=== PATIENT | male | born 1960 | race Caucasian/White ===

== ENCOUNTER 2016-11-03 14:46 | Inpatient (IN) | payer OTHER ==
[~2016-11-03] VITALS: Ht 170.2 cm; Wt 64.8 kg
[2016-11-03 14:40] VITALS: BP 142/83; PULSE 68; RESP 18; O2SAT 97
[~2016-11-03 14:46] MED LIST: ASPI-973 PO; OMEP20CA11 PO; POLY17PO6 PO; [UNRECOGNIZED DRUG - CODE] PO
[2016-11-03] MEDS ORDERED: ASPI325T32 PO (15:02)
[2016-11-03] MEDS ORDERED: Heparin 5,000 Unit/mL Inj IVPUSH PRN (16:20)
[2016-11-03] MEDS ORDERED: Heparin 25K Unit/500mL 0.45 NS 25,000 UNIT in IV Premix 1 EACH IV SCH ×2 (16:20→18:00)
--- NOTE | 2016-11-03 16:59 | CONS ---
[address] [address] CONSULTATION REPORT PATIENT: YADY NEGRETE : 1960 MR#: [id number] ADMIT: 11/03/2016 JOB ID: [id number] DATE OF SERVICE: 11/03/2016 CARDIOLOGY CONSULTATION: IDENTIFICATION: Dr. Akhil Arita has asked that I consult on this 56-year-old male admitted in transfer from [facility] with recent history of recurrent chest discomfort and an abnormal stress test. HISTORY OF PRESENT ILLNESS: The patient denies any previous cardiac history except for intermittent hypertension and is an admitted chronic smoker with a 35 pack-year history. He describes a one-year history of occasional chest pressure without any clear pattern for which he was given sublingual nitroglycerin but had no ischemic evaluation. However, over the previous five days he has had six episodes of a fairly intense exertional mid chest pressure without radiation associated with dyspnea, typically lasting 5-20 minutes and resolving with rest. He has had no resting discomfort. He denies any positional or pleuritic component to the discomfort. Last night he was doing some light gardening when he developed a much more intense discomfort associated with dyspnea that lasted around 15 minutes and then improved but lingered and therefore medics were summoned. He was found to have a blood pressure 140/70 and was transported to [facility] where his ECG was reportedly normal. His discomfort had nearly resolved by the time of his arrival and resolved after nitrates for a total duration of around an hour and a half. He has had no further chest discomfort. His initial troponin was in the indeterminate range at 0.65, increasing to 0.81. He underwent standard exercise treadmill testing this morning and apparently had significant EKG changes, but he denies any chest discomfort. Those tracings are not currently available for review, but by Dr. Crowder's report were notably abnormal. It is notable that the patient states that he was hypertensive at the time of the treadmill at 212/110. He was subsequently transferred for further evaluation and management. He denies any sense of any palpitations or diaphoresis. His risk factors include a history of hypertension, although he was taken off of his blood pressure medications earlier this year because of normal blood pressures. He denies any history of hyperlipidemia and his LDL was 64 with an HDL of 40 at the time of admission. There is no history of diabetes. PAST MEDICAL HISTORY: History of a 27-pound weight loss with abdominal discomfort for which he had an EGD that showed gastritis. This has now resolved. He has had a carpal tunnel release, neck fusion, and multiple knee surgeries. HOME MEDICATIONS: Only aspirin and sublingual nitroglycerin. ALLERGIES: No known drug allergies. FAMILY HISTORY: Notable for a father who required CABG in his 50s. 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 He denies any alcohol consumption over the last year and denies any marijuana or other recreational drug use. REVIEW OF SYSTEMS: A complete review is obtained and is notable for the absence of any recent fevers or chills or weight change. Denies any vision change. He recently has had multiple teeth extractions, with plans for more extractions in the near future, with subsequent dentures. He also complains of occasional difficulty swallowing ever since his neck fusion surgery but denies any aspiration or inability to swallow. Denies any dyspnea, cough, or hemoptysis. No history of any peptic ulcer disease or GI blood loss. Denies any genitourinary complaints or hematuria. No unusual musculoskeletal complaints. Denies any history of any neurologic symptoms, thyroid or bleeding disorder, or anxiety or depression. PHYSICAL EXAMINATION: Very pleasant, middle-aged white male, in no distress. HR 68, BP 142/83, O2 saturation 97% on room air. Skin: Warm and dry, with multiple tattoos throughout his body. HEENT: EOMI. Without arcus. He has very poor dentition, with multiple missing teeth. Lungs: Clear bilaterally to auscultation and percussion, without any rales or wheeze. CV: Nonpalpable PMI, with a regular rate and rhythm, with a normal S1 and S2, without any appreciable murmurs or gallops. JVP is 4-5 cm. Carotid and femoral pulses are 2+ bilaterally, with a normal upstroke without bruit. Dorsalis pedis and posterior tibial pulses are all 2+. Abdomen: Soft, nondistended, nontender. Without any palpable masses or organomegaly. Normal bowel tones are present, without bruits. Extremities: Warm, without any clubbing, cyanosis, or edema. Neuro: Moves all four extremities. Psych: Awake, alert, and oriented. LABORATORY: White count yesterday was 8.4, with hematocrit of 43%. BUN was 12, with a creatinine of 0.8. Potassium was 3.9, with a magnesium of 2.0. LFTs were normal. Troponin was 0.65. INR was 0.9. Amylase was 40. BNP was 97. Chest x-ray: Reportedly showed clear lung ramirez with some mild degenerative changes of the spine but otherwise normal. ECG is not currently available for review but by description showed sinus rhythm at 60 BPM without any significant abnormalities. IMPRESSION: 1. Recent exertional chest discomfort, now with an abnormal stress test. The patient's history is certainly concerning for an unstable angina picture given the exertional component of the discomfort and the borderline troponins. While I do not have the stress test tracings, they reportedly showed ischemic changes with exercise, supporting a probable ischemic etiology to his discomfort. However, given his hypertensive blood pressure to exercise, it could alternatively be a false positive due to his hypertension. I discussed potential evaluation strategies which would include repeat stress testing with an imaging modality to increase the sensitivity and specificity of the test versus proceeding directly to cardiac catheterization for definitive assessment of his coronary anatomy and possible percutaneous revascularization, if appropriate. After discussion of the risks, alternatives, and potential outcomes, the patient agrees to proceed with cardiac catheterization. I will contact Dr. Glez to arrange for angiography sometime tomorrow. In the meantime, I would start him on IV heparin given his concern for an unstable acute coronary syndrome. Will maintain him on low-dose beta blockade. He will be left n.p.o. in anticipation of his procedure tomorrow. Consideration should be given to possible bare metal stenting rather than drug-eluting stenting, if appropriate, as the patient is anticipating the need for extensive dental extractions which may be complicated if he is on dual anti-platelet therapy for an extended period of time. 2. Tobacco addiction. I counseled the patient that he needs to stop smoking. 3. History of gastritis. It is conceivable that his discomfort could be gastrointestinal related, but I believe that a cardiac etiology needs to be excluded before we use this diagnosis to explain his symptoms. PLAN: 1. Initiate IV heparin and beta blockade with nitrates as needed. 2. Proceed with cardiac catheterization tomorrow with further recommendations depending upon those results. 3. Continue to support tobacco abstinence. 4. Initiate empiric statin therapy, which should be continued if significant coronary artery disease is documented. TIME: I spent 1 hour and 15 minutes reviewing the patient's medical records, interviewing and examining the patient, answering his questions, and documenting such.
--- NOTE | 2016-11-03 17:27 | NUR ---
Direct Admit from [facility] pt. admitted at 1440 from CV; report received from RN. Pt. A&Ox3; denied cp or pressure; vss. Pt. started on heparin gtt this evening after baseline PTT drawn; heparin gtt started at 800 units/hr, 16 ml/hr; next PTT scheduled for 2218 this evening. Admit done; med rec completed. Pt. denies knowledge of any medication/food allergy; allergy list updated. Cardiologists consulted with pt; consent signed for heart cath tomorrow, 11/04/16; no questions about procedure at this time. Tele sinus 80's.
[2016-11-03] MEDS ORDERED: Atropine 1 mg/10 mL (Code) Syringe IVPUSH PRN (18:00)
[2016-11-03] MEDS ORDERED: Ondansetron 2 mg/mL 2 mL Inj IVPUSH PRN (18:00)
[2016-11-03] MEDS ORDERED: Alum-Mag Hydrox-Simeth 30 mL Suspension PO PRN (18:00)
[2016-11-03] MEDS ORDERED: Polyethylene Glycol (PEG) 17 Gm Powder PO PRN (18:00)
[2016-11-03] MEDS ORDERED: Senna-Docusate 8.6-50 mg Tablet PO PRN (18:00)
--- NOTE | 2016-11-03 18:10 | PCM.HPMED ---
Subjective Date of Service Nov 03, 2016 Primary Provider: Admitting Physician: Akhil Arita MD Primary Care Physician: Jaden Crowder MD Attending Physician: Akhil Arita MD Admit Status: Direct Admit, [facility] Telemetry Chief Complaint: Stuttering chest pain History of Present Illness: This is a 56-year-old male with a history of tobacco use and probable family history of CAD. He presents with five-day history of stuttering chest pain. The chest pain has been brought on by exertion and typically gets better with rest. He denies any nausea with it but has had some dyspnea and some diaphoresis. The patient describes the pain is more weight on his chest. No recent cough, no pleuritic component and no hemoptysis. No nausea or vomiting. He denies any dyspeptic symptoms. No abdominal pain. She also denies any leg swelling or edema. He had more severe pain last night and for that reason went to [facility] where he was admitted. His initial EKG and troponin were normal but his subsequent troponins were mildly abnormal. He underwent a stress test today which was concerning. They then arrange transfer to our hospital for probable cardiology evaluation and possible angiogram. The patient was placed on a heparin drip at [place] and denies any pain at the time of admit. Review of Systems: All else reviewed and otherwise noncontributory except as noted in history of present illness Allergies Coded Allergies: No Known Allergies (Verified Allergy, Unknown, 11/03/16) Home Medications Aspirin as needed for headaches PMH Tobacco dependence Surgical History Cervical fusion and 2 cervical laminectomies. Family History Father with CAD and bypass grafting at about age 50. Social History Hx Alcohol Use: Yes Hx Substance Use: Yes Living Arrangement: with Family Exam Vital Signs Vital Sign - Last Date Time Temp Pulse Resp B/P Pulse Ox O2 Delivery O2 Flow Rate FiO2 11/03/16 14:40 36.3 68 18 142/83 97 Room Air Exam Oriented 3. No distress. Fluent speech. Normal affect. Normal skull. Normal nose and ears. Anicteric sclera, symmetric pupils Oropharynx is unremarkable, no facial droop. Neck is supple, normal thyroid. No adenopathy. Lungs are clear, normal effort rate. Heart is regular without murmur gallop or rub. Abdomen soft, nondistended or tender. Extremities are free of pedal edema. Good radial and pedal pulses. Skin is free of rash, lesions. No petechiae or ecchymosis. Joints are grossly normal. Cranial nerves are grossly normal. Motor strength is normal in all extremities. Normal muscular tone. Lab and Diagnostics 12-lead ECG Pending Assessment & Plan Unstable angina, POA. This patient does have a history of crescendo chest pain. He also has multiple risk factors for CAD. He will be maintained on heparin drip, dual antiplatelets and beta blockade tonight. He will be nothing by mouth after midnight in anticipation of a possible coronary angiogram tomorrow. Cardiology consultation has been requested. Tobacco dependence, POA. We will use a nicotine patch tonight. Patient is full resuscitation, confirmed today. Patient is admitted inpatient status, tonight's anticipated length of stay. Pain Evaluation: Adequate Pain Control Resuscitation Status: CPR: Attempt Resuscitation Time spent 40 minutes Akhil Arita MD Nov 03, 2016 18:10
[2016-11-03 18:19] LABS: TROPONIN T 0.206 ug/L (0.0-0.011)
[2016-11-03 18:44] LABS: Creatine Kinase 86 U/L (21-232); Magnesium 1.9 mg/dL (1.6-2.6)
[2016-11-03] MEDS: 0.9% Sodium Chloride 1,000 ML IV SCH (19:55)
[2016-11-03 21:50] VITALS: BP 126/81; PULSE 55; RESP 16; O2SAT 99
[2016-11-03] MEDS: Heparin 5,000 Unit/mL Inj IVPUSH PRN (22:32)
[2016-11-03 23:40] VITALS: BP 127/76; PULSE 56; RESP 16; O2SAT 98
[2016-11-04] VITALS (17 sets, daily range): BP systolic 114–155; BP diastolic 70–91; PULSE 53–70; RESP 12–21; O2SAT 95–99
[2016-11-04] MEDS: Sodium Chloride LOK Flush 10 mL Syringe IVFLUSH SCH ×3 (00:30→17:30)
[2016-11-04 01:40] LABS: Creatine Kinase 79 U/L (21-232)
[2016-11-04 02:36] LABS: BASOPHILS % (AUTO) 0.4 % (0-3); EOSINOPHILS % (AUTO) 3.1 % (0-5); MONOCYTES % (AUTO) 8.7 % (4-12); Mean Corpuscular Hemoglobin 32.8 pg (27.0-35.0); Mean Corpuscular Volume 94.1 fL (81-100); NEUTROPHILS % (AUTO) 54.9 % (40-74); Platelet Count 196 bil/L (150-400)
[2016-11-04] MEDS: 0.9% Sodium Chloride 1,000 ML IV SCH ×2 (05:50→17:31)
--- NOTE | 2016-11-04 06:12 | NUR ---
Tele / IV Heparin / RA / NPO / Guaiac No c/o chest pain, Tele SB with HR 50s. VSS and afebrile. HS dose of Metoprolol 12.5mg withheld r/t HR. IV Heparin infusion per Heparin Cardiac Protocol, currently at 900 units/hour and last PTT of 65.3. IV NS infusing per MD orders at 80 mls/hour. No c/o SOB, RA sats 98-99%. Pt compliant with NPO status after midnight, for planned Heart Cath on 11/04/16 around 1500. Guaiac sample sent to lab overnight.
[2016-11-04] MEDS: Heparin 5,000 Unit/mL Inj IVPUSH PRN ×2 (08:34→13:20)
--- NOTE | 2016-11-04 15:04 | NUR ---
Social Work: Screen D: Per EMR review, pt is a 56 year old male admitted for chest pressume with abnormal stress test. Pt insurance is [facility]. PCP is Jaden Crowder MD. NOK is Erika Concepcion, . Advanced directives information provided to pt by CM. No Readmit score entered at this time. A: Pt lives in [place] with his spouse. Pt is I at baseline and has been ambulating I during admission. Cardiology consult indicating pt will require cath. No d/c needs identified at this time. P: Anticipate pt to discharge home via POV once medically stable; RN [facility] to continue to follow to assess for discharge needs. RONA Patel
--- NOTE | 2016-11-04 15:32 | PCM.PNMED ---
Subjective Date of Service Nov 04, 2016 Subjective Florian Concepcion is a 56-year-old man with a history of tobacco use and probable family history of CAD who presents with unstable angina. Overnight: No acute events reported. Today: Patient is scheduled for a cardiac cath but is becoming very anxious as his procedure had to be pushed back due to another emergency. Exam Vital Signs Vital Sign - Last Date Time Temp Pulse Resp B/P Pulse Ox O2 Delivery O2 Flow Rate FiO2 11/04/16 12:25 63 18 134/87 98 Room Air 11/04/16 12:01 36.5 Intake and Output 11/03/16 11/03/16 11/04/16 Cumulative From/Thru 15:00 23:00 07:00 11/03/16 15:13 - 11/04/16 06:07 Intake Total 1816 ml 1816 ml Output Total 1100 ml 1100 ml Balance 716 ml 716 ml Intake Oral 1098 ml 1098 ml IV Total 718 ml 718 ml Output Urine Total 1100 ml 1100 ml # Bowel Movements 1 1 Exam Oriented 3. No distress. Fluent speech. Normal affect. Normal skull.Normal nose and ears. Anicteric sclera, symmetric pupils. Oropharynx is unremarkable, no facial droop. Neck is supple, normal thyroid. No adenopathy. Lungs are clear, normal effort rate. Heart is regular without murmur gallop or rub. Abdomen soft, nondistended or tender. Extremities are free of pedal edema. Good radial and pedal pulses. Skin is free of rash, lesions. No petechiae or ecchymosis. Joints are grossly normal. Cranial nerves are grossly normal. Motor strength is normal in all extremities. Normal muscular tone. Lab and Diagnostics Result Diagram: 11/04/1621411/04/16214 Assessment & Plan Florian Concepcion is a 56-year-old man with a history of tobacco use and probable family history of CAD who presents with unstable angina. Unstable angina, POA. -This patient does have a history of crescendo chest pain. He also has multiple risk factors for CAD. -He will be maintained on heparin drip, dual antiplatelets and beta blockade until his cardiac cath. Unfortunately this has been postponed until later today. -Cardiology consultation has been requested. Tobacco dependence, POA. -We will use a nicotine patch tonight. Patient is full resuscitation, confirmed today. Patient is admitted inpatient status, tonight's anticipated length of stay. Resuscitation Status: CPR: Attempt Resuscitation Attending Statement Patient seen and examined with house staff. Agree with all attached documentation. Violet Rivero DO Nov 04, 2016 15:23 Akhil Arita MD Nov 04, 2016 17:08
[2016-11-04] MEDS ORDERED: Heparin 10,000 Unit/1,000 mL NS Premix IV ONE (18:02)
[2016-11-04] MEDS ORDERED: Heparin 1,000 Units/500 mL NS Premix IV ONE ×2 (18:02→18:58)
[2016-11-04] MEDS ORDERED: Nitroglycerin 50,000 mcg/250 mL D5W Premix IV ONE (18:02)
--- NOTE | 2016-11-04 18:15 | NUR ---
Activity/Tele/Certified Driver Examiner: Patient A&O X3. MESSER. Ambulated in room independently with strong/steady gait. Denies CP, SOB or dizziness. Tele: SB-SR Low 50-70's. Patient remained NPO since midnight last night and was taken to veterinary laboratory technician this afternoon at about 1805. With two PIV's. Heparin infusing at 1000u/hr and NS 80mL/hr. Pedal pulses marked.
[2016-11-04] MEDS ORDERED: fentaNYL-PF 50 mCg/mL 2 mL Inj ONE (18:23)
[2016-11-04] MEDS ORDERED: Heparin 1,000 Unit/mL 10 mL Inj ONE ×2 (18:49→19:10)
[2016-11-04] MEDS ORDERED: Atropine 1 mg/10 mL (Code) Syringe ONE (19:11)
[2016-11-04] MEDS ORDERED: Phenylephrine/NS-PF 100 mCg/mL 5 mL Syringe IVPUSH ONE (19:12)
[2016-11-04] MEDS ORDERED: Ondansetron 2 mg/mL 2 mL Inj IVPUSH PRN (20:35)
[2016-11-04] MEDS ORDERED: 0.9% Sodium Chloride 250 ML IV PRN (20:35)
[2016-11-04] MEDS ORDERED: 0.9% Sodium Chloride 1,000 ML IV PRN (20:35)
--- NOTE | 2016-11-04 22:16 | DI95 ---
[place] [address] INTERVENTIONAL CARDIAC CATHETERIZATION PATIENT: YADY NEGRETE : 1960 MR#: [id number] ADMIT: 11/03/2016 JOB ID: [id number] DATE OF SERVICE: 11/04/2016 PATIENT PROFILE: The patient is a 56-year-old male who presented with acute coronary syndrome. PROCEDURE: 1. Retrograde left heart catheterization. 2. Selective coronary angiography. 3. Intra-aortic balloon insertion. 4. Balloon angioplasty and stenting to the proximal left anterior descending. 5. Left ventricular angiogram. 6. Vascular closure device Perclose. COMPLICATIONS: None. METHOD: Retrograde left heart catheterization was performed from the right groin under 1% lidocaine local anesthesia using a 6-Khmer sheath. Selective coronary angiogram was performed in multiple projections, including cranial and caudal angulations with hand injected contrast via JL4 and 3DRC catheters. Vascular access was obtained from the left groin. A 40 cc intraaortic balloon was inserted from the left groin and placed in the descending thoracic aorta under fluoroscopy. This was secured in situ. Heparin 100 units/kg were given. A 6-Khmer JL4 guide was advanced to the left coronary ostium. A Run-through wire was placed inside the left anterior descending artery. The lesion was predilated with a 2.0 and a 2.5 x 15 mm balloon. A Xience 2.75 x 15 mm stent was placed inside the lesion and deployed at 12 atmospheres for 30 seconds. A 3.0 x 12 mm balloon was used for post stent deployment dilation. It was inflated up to 15 atmospheres for 30 seconds. Final angiogram was obtained. A 6-Khmer angulated pigtail catheter was advanced to the left ventricle and left ventricular angiogram was performed in the 30 degree KINCAID view by injecting contrast at the rate of 10 cc/second for 3 seconds. This catheter was withdrawn. Right femoral angiogram was performed before sheath removal. Hemostasis was achieved by using a Perclose device. The patient tolerated the procedure well. He was transferred to ICU in good condition. Total contrast used: 85 cc. FLUOROSCOPY TIME: 4.6 minutes. RESULTS: 1. Selective coronary angiogram. a. Left main coronary artery is normal. b. The left anterior descending artery is transapical and has critical 98% stenosis in the proximal portion. This provided well-developed left-to- right collaterals. c. The ramus intermedius is quite small and has diffuse disease. d. The circumflex artery is occluded in the mid portion. The distal circumflex and obtuse marginal branch are filled retrogradely via collaterals from the ramus intermedius and left anterior descending. e. The dominant right coronary artery is occluded in the distal portion. 2. Balloon angioplasty and stenting was performed to the tight culprit proximal left anterior descending artery lesion by deploying one drug eluting stent (2.75 x 15 mm). A 3.0 mm balloon was used for post stent deployment dilation to achieve an excellent angiographic result with TREY-3 flow distally. This was performed with intra-aortic balloon support. 3. Left ventricular angiogram demonstrates mildly depressed left ventricular systolic function (visually estimated ejection fraction 50%). The apical 2/3 of the anterolateral wall is mildly hypokinetic. The basal half of the inferior wall is moderately hypokinetic. The remaining segments contract normally. 4. There is no gradient across the aortic valve on catheter withdrawal. 5. Aortic pressure is 138/85 mmHg. Left ventricular pressure is 126/2 mmHg. 6. Left ventricular end-diastolic is 19 mmHg. CONCLUSION: 1. Critical stenosis of the proximal left anterior descending, this was successfully treated with one drug-eluting stent. 2. Occluded distal circumflex artery with [id number] collaterals. 3. Occluded distal right coronary artery with [id number] collaterals. 4. LVEF 50%. 5. LVEDP is 19 mmHg. PLAN: Percutaneous intervention will be performed to the occluded distal right coronary artery and distal circumflex artery at a later time. ARANZA
[2016-11-05] VITALS: BP 118/74; PULSE 58; RESP 15; O2SAT 95
[2016-11-05 00:15] VITALS: BP 104/65; PULSE 58; RESP 17
[2016-11-05] MEDS: Sodium Chloride LOK Flush 10 mL Syringe IVFLUSH SCH ×2 (00:20→08:11)
[2016-11-05 02:50] LABS: Mean Corpuscular Hemoglobin 32.5 pg (27.0-35.0); Mean Corpuscular Volume 93.8 fL (81-100)
[2016-11-05 04:07] VITALS: BP 118/74; PULSE 55; RESP 15; O2SAT 98
[2016-11-05 04:09] VITALS: BP 130/77; PULSE 54; RESP 17
--- NOTE | 2016-11-05 06:21 | NUR ---
Cardiac Pt returned to 2013 post [facility] with stent placement @ 2013. Bilateral groin puncture site with perclose per report, Rt groin had small ooze, applied pressure and placed sandbag, achieved good hemostasis thereafter. Pt instructed to keep BLE straight x 6hrs, pt understood teaching, distal pulses strong and palpable. vital signs stable throughout shift.
[2016-11-05 07:00] VITALS: PULSE 65
[2016-11-05 08:00] VITALS: BP 110/80; PULSE 88; PULSE 99; RESP 18; O2SAT 98
[2016-11-05] MEDS ORDERED: NITR0.4T SL (08:36)
[2016-11-05] MEDS ORDERED: ASPI81TA3 PO (08:36)
[2016-11-05] MEDS ORDERED: CLOP75TA28 PO (08:36)
[2016-11-05] MEDS ORDERED: ATOR20TA65 PO (08:36)
--- NOTE | 2016-11-05 08:41 | PCM.DIMED ---
Violet Rivero DO 11/05/16 0841: Discharge Instructions Date of Service Nov 05, 2016 Dates of Hospitalization Nov 03, 2016 at 14:46 Discharge Diagnosis Discharge Diagnosis Critical stenosis of the proximal left anterior descending, this was successfully treated with one drug-eluting stent. Medication Instructions Additional med instructions You were given medications to prevent the wire stent in your artery in the heart. If you do not take these medications that stent can be blocked and you can have a heart attack. Patient Instructions Patient Instructions Please follow up with your regular doctor in about 1 week. Please be sure to follow up with cardiology in 2-3 weeks. Please take all the medications prescribed to you. Please call [phone] if you have severe chest pain. Please call your doctor if you notice that you are having black or bloody stools. Follow-up plan You will need to have another cardiac catheterization to stent a different vessel in your heart that is also blocked. Please be sure to follow up with cardiology in the next 2-3 weeks. Please continue to take all your medications as prescribed. Follow-up with PCP in: 1 week Provider: Hairsh Glez MD Follow-up in: 3 weeks Akhil Arita MD 11/05/16 1031: Discharge Instructions Attending's Statement The patient was seen and examined with staff. Agree with all attached documentation. Violte Rivero DO Nov 05, 2016 08:41 Akhil Arita MD Nov 05, 2016 10:31
[2016-11-05] MEDS ORDERED: LISI-571 PO (09:16)
[2016-11-05] MEDS ORDERED: METO25TA6 PO (09:16)
--- NOTE | 2016-11-05 10:46 | NUR ---
Social Work: Multidisciplinary Rounds/Discharge D: Pt discussed in am rounds. Pt is medically stable for discharge. MD and team express no concerns for pt to discharge home and have no concerns about pt's capacity for self care. A: EMR reveiwed; pt has been ambulating I during admission. No sw needs or barriers identified. P: Pt to discharge home via POV and no sw needs. RONA Patel
--- NOTE | 2016-11-05 11:17 | NUR ---
D/C Note.. Pt has been up amb in room and halls and is kelly activity well with no chest pain or SOB. Bilateral groin sites remain stable without any bleed or hematoma. D/C orders received and prescriptions given to pt with care notes. Smoking cessation discussed .. cessation kit offered, but pt declined. Is awaiting ride home when arrives.
--- NOTE | 2016-11-05 13:18 | NUR ---
D/C home.. Pt D/C home with belongings accompanied by .
--- NOTE | 2016-11-11 14:03 | PCM.DC.MED ---
Discharge Summary Date of Service Nov 11, 2016 Dates of Hospitalization Date of Hospital Admission Nov 03, 2016 at 14:46 Date of Discharge: Nov 05, 2016 Providers: Admitting Physician: Akhil Arita MD Primary Care Physician: Jaden Crowder MD Attending Physician: Akhil Arita MD Diagnosis at Time of Discharge Diagnosis at Time of Discharge Critical stenosis of the proximal left anterior descending, this was successfully treated with one drug-eluting stent. Consultations Cardiology Brief History From Dr. Arita's H and P: "This is a 56-year-old male with a history of tobacco use and probable family history of CAD. He presents with five-day history of stuttering chest pain. The chest pain has been brought on by exertion and typically gets better with rest. He denies any nausea with it but has had some dyspnea and some diaphoresis. The patient describes the pain is more weight on his chest. No recent cough, no pleuritic component and no hemoptysis. No nausea or vomiting. He denies any dyspeptic symptoms. No abdominal pain. She also denies any leg swelling or edema. He had more severe pain last night and for that reason went to [facility] where he was admitted. His initial EKG and troponin were normal but his subsequent troponins were mildly abnormal. He underwent a stress test today which was concerning. They then arrange transfer to our hospital for probable cardiology evaluation and possible angiogram. The patient was placed on a heparin drip at [place] and denies any pain at the time of admit." Hospital Course Florian Concepcion is a 56-year-old man with a history of tobacco use and probable family history of CAD who presents with unstable angina. Unstable angina, POA. -This patient does have a history of crescendo chest pain. He also has multiple risk factors for CAD. -maintained on heparin drip, dual antiplatelets and beta blockade until his cardiac cath -Cath showing critical stenosis of proximal left anterior descending artery s/p stent -Occluded distal right coronary artery and distal circumflex to be stented at a later time. Tobacco dependence, POA. -nicotine patch Exam Vital Signs (Last) Date Time Temp Pulse Resp B/P Pulse Ox O2 Delivery O2 Flow Rate FiO2 11/05/16 08:00 88 11/05/16 08:00 36.6 18 110/80 98 Room Air Exam Oriented 3. No distress. Fluent speech. Normal affect. Normal skull.Normal nose and ears. Anicteric sclera, symmetric pupils. Oropharynx is unremarkable, no facial droop. Neck is supple, normal thyroid. No adenopathy. Lungs are clear, normal effort rate. Heart is regular without murmur gallop or rub. Abdomen soft, nondistended or tender. Extremities are free of pedal edema. Good radial and pedal pulses. Skin is free of rash, lesions. No petechiae or ecchymosis. Joints are grossly normal. Cranial nerves are grossly normal. Motor strength is normal in all extremities. Normal muscular tone. Test 11/03/16 17:13 11/04/16 00:48 11/04/16 02:15 11/04/16 17:25 Hemoglobin A1c 5.7% (4.8-5.6) Magnesium Level 1.9mg/dL (1.6-2.6) Troponin T 0.206ug/L (0.0-0.011) Thyroid Stimulating Hormone (TSH) 1.130uIU/mL (0.450-4.500) Total Creatine Kinase 79U/L (21-232) Creatine Kinase MB 2.2ng/mL (0.0-10.4) Creatine Kinase MB % % (0.0-5.0) Neutrophils (%) (Auto) 54.9% (40-74) Lymphocytes (%) (Auto) 32.7% (14-46) Monocytes (%) (Auto) 8.7% (4-12) Eosinophils (%) (Auto) 3.1% (0-5) Basophils (%) (Auto) 0.4% (0-3) Triglycerides Level 74mg/dL (0-149) Cholesterol Level 140mg/dL (100-199) LDL Cholesterol, Calculated 80.200mg/dL (0-99) VLDL Cholesterol 14.800mg/dL HDL Cholesterol 45mg/dL (>39) Cholesterol/HDL Ratio 3.11 (0.0-4.4) Activated Partial Thromboplast Time 49.5sec (22.8-33.0) Test 11/05/16 02:42 White Blood Count 10.2th/mm3 (3.8-10.1) Red Blood Count 4.64mil/mm3 (4.40-5.80) Hemoglobin 15.1g/dL (13.8-17.2) Hematocrit 43.5% (41.0-50.0) Mean Corpuscular Volume 93.8fL (81-100) Mean Corpuscular Hemoglobin 32.5pg (27.0-35.0) Mean Corpuscular Hemoglobin Concent 34.7% (32.0-37.0) Red Cell Distribution Width 11.6% (12.3-15.4) Platelet Count 199bil/L (150-400) Sodium Level 139mEq/L (134-144) Potassium Level 4.1mEq/L (3.5-5.2) Chloride Level 104mEq/L (97-108) Carbon Dioxide Level 21mmol/L (18-29) Blood Urea Nitrogen 13mg/dL (6-24) Creatinine 0.84mg/dL (0.76-1.27) Estimat Glomerular Filtration Rate 101mL/min (>59) Glucose Level 115mg/dL (60-99) Calcium Level 8.8mg/dL (8.5-10.1) Discharge Medications Discharge Medications Aspirin Chew (Aspirin Chew) 81 Mg Chew 81 MG PO DAILY Prescribed by: HERNAN RIVERO DO Atorvastatin Calcium (Atorvastatin Calcium) 40 Mg Tablet 40 MG PO HS (Reported) Clopidogrel (Clopidogrel) 75 Mg Tablet 75 MG PO DAILY Prescribed by: HERNAN RIVERO DO Lisinopril (Lisinopril) 5 Mg Tablet 5 MG PO DAILY Prescribed by: HERNAN RIVERO DO Metoprolol Tartrate (Metoprolol Tartrate) 25 Mg Tablet 12.5 MG PO Q12 Prescribed by: HERNAN RIVERO DO As needed Nitroglycerin SL (Nitrostat) 0.4 Mg Tab.subl 0.4 MG SL Q5MIN PRN PRN For Chest Pain Prescribed by: HERNAN RIVERO DO Additional med instructions You were given medications to prevent the wire stent in your artery in the heart. If you do not take these medications that stent can be blocked and you can have a heart attack. Followup Plan Follow-up plan You will need to have another cardiac catheterization to stent a different vessel in your heart that is also blocked. Please be sure to follow up with cardiology in the next 2-3 weeks. Please continue to take all your medications as prescribed. Patient Instructions Please follow up with your regular doctor in about 1 week. Please be sure to follow up with cardiology in 2-3 weeks. Please take all the medications prescribed to you. Please call 911 if you have severe chest pain. Please call your doctor if you notice that you are having black or bloody stools. Follow-up with PCP in: 1 week Provider: Harish Glez MD Follow-up in: 3 weeks Hernan Rivero DO Nov 11, 2016 14:03
== END 2016-11-05 11:57 | disposition home or self-care (01) | DRG 175 ==
LOC: PCC 14:46 → CCU 11-04 20:14 → PCC 11-05 07:53
PROVIDERS: ADMIT Hospitalist; ATTEND Hospitalist
PROC: 027034Z Dilation of Coronary Artery, One Artery with Drug-eluting Intraluminal Device, Percutaneous Approach (ICD-10-PCS; principal; 2016-11-04)
PROC: 4A023N7 Measurement of Cardiac Sampling and Pressure, Left Heart, Percutaneous Approach (ICD-10-PCS; 2016-11-04)
PROC: B2111ZZ Fluoroscopy of Multiple Coronary Arteries using Low Osmolar Contrast (ICD-10-PCS; 2016-11-04)
PROC: B2151ZZ Fluoroscopy of Left Heart using Low Osmolar Contrast (ICD-10-PCS; 2016-11-04)
DX: I25.110 Atherosclerotic heart disease of native coronary artery with unstable angina pectoris (principal); F17.210 Nicotine dependence, cigarettes, uncomplicated

== ENCOUNTER 2016-11-10 01:38 | Day surgery (SDC) | payer OTHER ==
[~2016-11-10] VITALS: Ht 170.2 cm; Wt 70.8 kg
[2016-11-10] VITALS (22 sets, daily range): BP systolic 101–129; BP diastolic 62–96; PULSE 50–66; RESP 15–18; O2SAT 95–100
[~2016-11-10 01:38] MED LIST changes: -ASPI-973 PO; +ASPI81TA3 PO; +ATOR20TA65 PO; +CLOP75TA28 PO; +LISI-571 PO; +METO25TA6 PO; +NITR0.4T SL; -OMEP20CA11 PO; -POLY17PO6 PO; -[UNRECOGNIZED DRUG - CODE] PO
[2016-11-10 09:21] LABS: BASOPHILS % (AUTO) 0.6 % (0-3); EOSINOPHILS % (AUTO) 3.6 % (0-5); MONOCYTES % (AUTO) 11.7 % (4-12); Mean Corpuscular Hemoglobin 33.1 pg (27.0-35.0); Mean Corpuscular Volume 93.9 fL (81-100); NEUTROPHILS % (AUTO) 58.3 % (40-74); Platelet Count 222 bil/L (150-400)
--- NOTE | 2016-11-10 09:43 | NUR ---
Patient admitted for planned PCI with dr marin.Pt reports bilateral sorenes and bruising.On exam, he has bilateral hard areas on right side approx. 1 cm and left side approx. 1.5 cm with minimal bruising to both sides.He is accompanied by his significant other.
[2016-11-10] MEDS ORDERED: Heparin 1,000 Unit/mL 10 mL Inj ONE ×2 (09:54→10:49)
[2016-11-10] MEDS ORDERED: Nitroglycerin 50,000 mcg/250 mL D5W Premix IV ONE (09:55)
[2016-11-10] MEDS ORDERED: Heparin 10,000 Unit/1,000 mL NS Premix IV ONE ×2 (09:58→11:00)
[2016-11-10] MEDS ORDERED: Heparin 1,000 Units/500 mL NS Premix IV ONE ×2 (09:58→10:21)
[2016-11-10] MEDS ORDERED: 0.9% Sodium Chloride 1,000 ML IV ONE (10:06)
[2016-11-10] MEDS ORDERED: fentaNYL-PF 50 mCg/mL 2 mL Inj ONE ×2 (10:12→11:16)
[2016-11-10] MEDS ORDERED: Atropine 1 mg/10 mL (Code) Syringe ONE (11:09)
[2016-11-10] MEDS ORDERED: Protamine Sulfate 10 mg/mL 5 mL Inj ONE ×2 (11:44→11:48)
--- NOTE | 2016-11-10 12:59 | DI95 ---
[place] [address] INTERVENTIONAL CARDIAC CATHETERIZATION PATIENT: YADY NEGRETE : 1960 MR#: [id number] ADMIT: 11/10/2016 JOB ID: [id number] DATE OF PROCEDURE: 11/10/2016 PATIENT PROFILE: The patient is a 56-year-old male who presented with acute coronary syndrome last week. He underwent urgent angioplasty and stent placement to the proximal left anterior descending artery. He was found to have chronic total occlusion of the right coronary artery with viable inferior wall. PROCEDURE: 1. Vascular access from both groins under ultrasound guidance. 2. Chronic total occlusion angioplasty and stenting to the distal right coronary artery. 3. Balloon angioplasty and stenting to the right posterior descending branch. 4. Vascular closure device, Perclose in the right groin and StarClose in the left groin. METHOD: Vascular access was obtained from both groins under 1% lidocaine local anesthesia using a 6-Ethiopian sheath in the right groin and 5-Ethiopian in the left groin. This was performed under ultrasound guidance. A 6-Ethiopian JR4 guide was advanced to the right coronary ostium. A 5-Ethiopian JL4 catheter was placed in the left coronary ostium. An initial attempt to cross the chronic total occlusion of the distal right coronary artery with Runthrough wire was unsuccessful despite using Corsair catheter as support. The angioplasty wire was then changed to a Whisper, Fielder XT and Metallic Yarn Slitting Machine Operator 150. Finally the HEEL SANDER RUBBER was able to cross with a Metallic Yarn Slitting Machine Operator 150 wire. Once the wire position was confirmed in the true lumen in the distal right posterolateral branch via contralateral injection. The Corsair catheter was then exchanged to a 1.20 mm balloon. This balloon was inflated up to 14 atmospheres. The distal right coronary artery lesion was then dilated with a 2.0 and a 2.5 balloon. This 2.5 balloon was also used to dilate in the right posterior descending branch lesion. A Resolute Integrity 2.5 x 14 mm stent was placed in the right posterior descending branch lesion and deployed at 18 atmospheres for 15 seconds. A Xience 2.75 x 23 mm stent was placed inside the distal right coronary artery lesion and deployed at 22 atmospheres for 25 seconds. Nitroglycerin 100 mcg was given intracoronary. Final angiogram was obtained. Bilateral femoral angiogram was performed. Hemostasis was achieved by using Perclose in the right groin and StarClose in the left groin. The patient tolerated the procedure well. He was transferred to [facility] in good condition. TOTAL CONTRAST USED: 210 cc. FLUOROSCOPY TIME: 10.4 minutes. RESULTS: 1. Successful angioplasty to the chronic total occlusion of the distal right coronary artery by deploying one drug eluting stent (2.75 x 23 mm) to achieve an excellent angiographic result with TREY-3 flow distally. 2. Successful balloon angioplasty and stenting to the severe right posterior descending branch stenosis by deploying one drug eluting stent (2.5 x 15 mm) to achieve an excellent angiographic result with TREY-3 flow distally. ARANZA
--- NOTE | 2016-11-10 15:03 | NUR ---
At approx 14:25 patient called because he felt wetness at left groin. Pt noted to have profuse bleeding from left groin.Manual compression immediately applied. Hematoma not palpated, bleed is nonpulsatile. Anel from lab engineer applied pressure manually until 15;00 at which time there was no further bleeding noted from left groin.Dr Li called over to assess bleed and groin.He would like patient to stay overnight, pt informed. Groin may be injected with lido/epi if needed.Femostop applied at 40 psi.
--- NOTE | 2016-11-10 17:11 | NUR ---
Fem stop removed at 1705 - site is bruised but soft - no hematoma.
[2016-11-10] MEDS ORDERED: 0.9% Sodium Chloride 1,000 ML IV PRN (20:22)
[2016-11-10] MEDS ORDERED: 0.9% Sodium Chloride 250 ML IV PRN (20:22)
[2016-11-10] MEDS ORDERED: Ondansetron 2 mg/mL 2 mL Inj IVPUSH PRN (20:25)
[2016-11-10] MEDS ORDERED: Atropine 1 mg/10 mL (Code) Syringe IVPUSH PRN (20:25)
[2016-11-11 03:26] VITALS: BP 122/68; PULSE 64; RESP 14; O2SAT 95
[2016-11-11 03:30] LABS: Mean Corpuscular Hemoglobin 32.7 pg (27.0-35.0); Mean Corpuscular Volume 94.9 fL (81-100)
--- NOTE | 2016-11-11 05:40 | NUR ---
Transfer Pt arrived from [facility] via bed at approx. 1999, report received from Jed Matamoros RN. Pt denies any pain or discomfort; per MD order, bedrest until 0600 this AM. Bilateral groin sites intact throughout shift, no acute bleeding or hematoma formation. VSS, tele SB 50s with MP30 in room.
[2016-11-11 06:15] VITALS: PULSE 56
[2016-11-11 07:34] VITALS: BP 133/76; PULSE 57; RESP 16; O2SAT 98
[2016-11-11] MEDS ORDERED: ATOR40TA69 PO (07:39)
--- NOTE | 2016-11-11 08:36 | PCM.DIMED ---
Tunde Barbour PA-C 11/11/16 0836: Discharge Instructions Date of Service Nov 11, 2016 Dates of Hospitalization Nov 10, 2016 at 20:08 Discharge Diagnosis Discharge Diagnosis CAD, s/p TIFFANIE to RCA and TIFFANIE to the right posterior descending branch (11/10/2016 ) Medication Instructions Additional med instructions Please take all medications as prescribed. Please make sure that you take Plavix (Clopidogrel) every day at least one year. It is very important because you had stents placements. Diet Discharge Diet: Low fat, Low Sodium, Heart Healthy Activity Discharge Activity: Other (Please se below) Call your provider Call your provider for: Shortness of breath, Bleeding, Chest pain Patient Instructions Patient Instructions No car driving for couple of days; you can have shower starting today; please do not soak in bath tub for one week; no heavy lifting, no more than 7-10 lb for one week, otherwise please be physically active as tolerated. Follow-up plan Check BMP in one week Follow-up with PCP in: 4 weeks Provider: Harish Glez MD, Kamol MD 11/11/16 0856: Tunde Barbour PA-C Nov 11, 2016 08:36 Harish Glez MD Nov 11, 2016 08:56
--- NOTE | 2016-11-11 08:42 | PCM.DC.MED ---
Discharge Summary Date of Service Nov 11, 2016 Dates of Hospitalization Date of Hospital Admission Nov 10, 2016 at 20:08 Providers: Admitting Physician: Harish Glez MD Primary Care Physician: Jaden Crowder MD Attending Physician: Harish Glez MD Diagnosis at Time of Discharge Diagnosis at Time of Discharge CAD, s/p TIFFANIE to RCA and TIFFANIE to the right posterior descending branch (11/10/2016 ) Brief History The patient is a 56-year-old male who presented with acute coronary syndrome last week. He underwent urgent angioplasty and stent placement to the proximal left anterior descending artery. He was found to have chronic total occlusion of the right coronary artery with viable inferior wall. Hospital Course On 11/10/2016 the patient had elective coronary angiography with successful angioplasty to the chronic total occlusion of the distal right coronary artery with TIFFANIE placement; also successful balloon angioplasty and stenting with TIFFANIE to the severe right posterior descending branch stenosis. The patient tolerated procedure well. He ambulates freely. Denies having any chest discomfort or WELCH, does not have symptoms of nocturnal pulmonary congestion, denies having palpitations, or dizziness/lightheadedness. His right and left groin areas (access sites) are nontender with palpation, no bleeding, no hematoma, and no bruits with auscultation. Per telemetry: sinus rhythm with HR in 60s-70s bpm, no dysrhythmia. Medications on discharge are below. Exam Vital Signs (Last) Date Time Temp Pulse Resp B/P Pulse Ox O2 Delivery O2 Flow Rate FiO2 11/11/16 07:34 36.8 57 16 133/76 98 Room Air Exam General: No active distress EENT: Mucous membranes moist, sclerae anicteric Neck: Supple, no thyromegaly Pulmo: Normal breathing sounds bilaterally, no crackles, no wheezing Cardio: RRR, no murmur appreciated, JVP is not elevated Abdomen: Nontender with palpation Vascular: No carotid bruits, peripheral pulses preserved Neuro: A&Ox3, no gross abnormalities Test 11/10/16 09:05 11/11/16 03:15 Neutrophils (%) (Auto) 58.3% (40-74) Lymphocytes (%) (Auto) 25.4% (14-46) Monocytes (%) (Auto) 11.7% (4-12) Eosinophils (%) (Auto) 3.6% (0-5) Basophils (%) (Auto) 0.6% (0-3) White Blood Count 8.9th/mm3 (3.8-10.1) Red Blood Count 4.13mil/mm3 (4.40-5.80) Hemoglobin 13.5g/dL (13.8-17.2) Hematocrit 39.2% (41.0-50.0) Mean Corpuscular Volume 94.9fL (81-100) Mean Corpuscular Hemoglobin 32.7pg (27.0-35.0) Mean Corpuscular Hemoglobin Concent 34.4% (32.0-37.0) Red Cell Distribution Width 11.6% (12.3-15.4) Platelet Count 233bil/L (150-400) Sodium Level 140mEq/L (134-144) Potassium Level 4.3mEq/L (3.5-5.2) Chloride Level 103mEq/L (97-108) Carbon Dioxide Level 23mmol/L (18-29) Blood Urea Nitrogen 11mg/dL (6-24) Creatinine 0.75mg/dL (0.76-1.27) Estimat Glomerular Filtration Rate 115mL/min (>59) Glucose Level 108mg/dL (60-99) Calcium Level 9.1mg/dL (8.5-10.1) Discharge Medications Discharge Medications Aspirin Chew (Aspirin Chew) 81 Mg Chew 81 MG PO DAILY Prescribed by: HERNAN MCKAY DO Atorvastatin Calcium (Atorvastatin Calcium) 40 Mg Tablet 40 MG PO HS (Reported) Clopidogrel (Clopidogrel) 75 Mg Tablet 75 MG PO DAILY Prescribed by: HERNAN MCKAY DO Lisinopril (Lisinopril) 5 Mg Tablet 5 MG PO DAILY Prescribed by: HERNAN MCKAY DO Metoprolol Tartrate (Metoprolol Tartrate) 25 Mg Tablet 12.5 MG PO Q12 Prescribed by: HERNAN MCKAY DO As needed Nitroglycerin SL (Nitrostat) 0.4 Mg Tab.subl 0.4 MG SL Q5MIN PRN PRN For Chest Pain Prescribed by: HERNAN MCKAY DO Additional med instructions Please take all medications as prescribed. Please make sure that you take Plavix (Clopidogrel) every day at least one year. It is very important because you had stents placements. Followup Plan Follow-up plan Check BMP in one week Discharge Diet: Low fat, Low Sodium, Heart Healthy Discharge Activity: Other Patient Instructions No car driving for couple of days; you can have shower starting today; please do not soak in bath tub for one week; no heavy lifting, no more than 7-10 lb for one week, otherwise please be physically active as tolerated. Follow-up with PCP in: 4 weeks Provider: Harish Glez MD, Nino PA-C Nov 11, 2016 08:42
--- NOTE | 2016-11-11 08:58 | DIS ---
[address] [address] DISCHARGE SUMMARY PATIENT: YADY NEGRETE : 1960 MR#: [id number] ADMIT: 11/10/2016 JOB ID: [id number] DIS: ADMITTING DIAGNOSIS: Coronary artery disease with chronic total occlusion of the right coronary artery with viable myocardium. DISCHARGE DIAGNOSIS: Coronary artery disease with chronic total occlusion of the right coronary artery with viable myocardium. SECONDARY DIAGNOSES: 1. Recent lal-RF-yagmxesmr myocardial infarction. 2. Tobacco addiction. PROCEDURE: 1. Balloon angioplasty and stenting to the chronic total occlusion of the distal right coronary artery. 2. Balloon angioplasty and stenting to the right posterior descending branch. COMPLICATIONS: None. HISTORY: The patient presented to [facility] on November 03, 2016, with [id number]-[id number] myocardial infarction. He was found to have critical stenosis of the proximal left anterior descending artery, which was successfully treated with one drug eluting stent. The patient returned for elective intervention procedure to the chronic total occlusion of the distal right coronary artery. This area was still viable. The procedure was performed successfully by deploying one drug eluting stent to the right distal right coronary artery and one drug-eluting stent in the right posterior descending branch. He has slight bleeding from the groin puncture site. He was kept on bedrest overnight and was discharged from the hospital on the following day in good condition. His discharge medications remain the same. He will follow up with Dr. Lowry in 3-4 weeks. The patient was referred to outpatient cardiac rehab. He was advised to stop smoking. ARANZA
--- NOTE | 2016-11-11 09:22 | NUR ---
Social Work: Initial Assessment D: Per EMR review, pt is a 56 year old male admitted for coronary Artery Disease. Pt is [employer] insurance with no supplement, LTC or VA Benefits. PCP is Jaden Crowder MD. NOK is Erika Concepcion, , . AD info provided at previous admission- declined info from NUCLEAR PHARMACIST during this admit. Readmit score not entered at this time. Pt was discharged on 11/05/16 with no sw needs. Pt screened in for assessment due to readmission. NUCLEAR PHARMACIST met with pt at bedside. Sw role explained, discharge planning checklist and contact info provided. Pt lives in [place] with his spouse. Pt is I at baseline with all ADLs, continues to drive and participates in all of his own self-care. Pt has never had HH or skilled rehab. Pt identifies no sw needs or barriers to d/c and states his will transport him home. A: Pt who is I at baseline and has been ambulating I during admission. P: Anticipate pt to discharge home via POV once medically stable; NUCLEAR PHARMACIST to continue to follow to assess for discharge needs. RONA Patel Addendum: 11/11/16 at 0926 by SUSSY GOMEZ Amended: Links added.
--- NOTE | 2016-11-11 11:42 | NUR ---
Discharge Pt bilateral groin sites c/d/i, no oozing or hematoma present. Distal pulses palpable. Denies CP/pressure. VSS. D/C education complete, pt denies questions. PIV x2 d/c'd in tact. Preferred to ambulate to private vehicle (w/c offered); to drive home. PLAIN GOODS HEMMER accompanied pt to private vehicle. All belongings sent with pt at time of d/c.
== END 2016-11-11 11:30 | disposition home or self-care (01) ==
LOC: SPI 01:38 → UNDOADMIN 20:08 → PCC 20:08 → SPI 11-11 11:30
PROVIDERS: ATTEND Internal Medicine Interventional Cardiology
PROC: 027135Z Dilation of Coronary Artery, Two Arteries with Two Drug-eluting Intraluminal Devices, Percutaneous Approach (ICD-10-PCS; principal; 2016-11-10)
DX: I25.10 Atherosclerotic heart disease of native coronary artery without angina pectoris (principal); I25.82 Chronic total occlusion of coronary artery; Z95.5 Presence of coronary angioplasty implant and graft
CPT/HCPCS: 36415; 80048; 85025; 85027; 93005; 99152; 99153; C1725; C1760; C1769; C1874; C1887; C9601; C9607; J1644; J2250; J2720; J3010; J7030; Q9967